=== PATIENT | female | born 1980 | race Caucasian/White ===

== ENCOUNTER 2018-12-23 07:00 | Day surgery (SDC) | payer OTHER ==
[~2018-12-23 07:00] MED LIST: GILPHEX TR1 TAB.SR . PO; SYNTHROID200 MCG PO
[2018-12-23] MEDS ORDERED: PERCOCET 5-3251 EACH PO (12:31)
== END 2018-12-23 14:25 | disposition home or self-care (01) ==
LOC: CIR.AMB 07:00
DX: K43.2 Incisional hernia without obstruction or gangrene (principal); K66.0 Peritoneal adhesions (postprocedural) (postinfection)